=== PATIENT | male | born 1965 | race Caucasian/White ===

== ENCOUNTER 2016-11-24 17:49 | Emergency (ER) | payer BC, OTHER ==
[2016-11-24 18:02] VITALS: BP 108/72; PULSE 92; TEMP 98.4; BMI 32.4
--- NOTE | 2016-11-24 19:43 | PDOC ---
History of Present Illness - General Chief Complaint: Note to return to work Stated Complaint: LOWER BACK PAIN Time Seen by Provider: 11/24/16 19:19 History Source: Patient Exam Limitations: No Limitations - History of Present Illness Initial Comments: 11/24/16 19:36 CHIEF COMPLAINT: Low back pain HISTORY OF PRESENT ILLNESS: This is an otherwise healthy 51 year old male who presented to urgent care one week ago for low back pain following a fall at work. He reports being diagnosed with "muscle spasm." He continues to have pain with heavy lifting and would like to remain on light duty at work. He denies any weakness or numbness of the legs, and change in bladder or bowel function, or any other symptoms. PCP: None REVIEW OF SYSTEMS: GENERAL/CONSTITUTIONAL: No fever or chills. No weakness. No weight change. RESPIRATORY: No cough, wheezing, or shortness of breath. GASTROINTESTINAL: No nausea, vomiting, diarrhea or constipation. GENITOURINARY: No dysuria, frequency, or change in urination. MUSCULOSKELETAL: See HPI. SKIN: No rash or easy bruising. NEUROLOGIC: No headache, vertigo, loss of consciousness, or loss of sensation. HEMATOLOGIC/LYMPHATIC: No anemia, easy bleeding, or history of blood clots. ALLERGIC/IMMUNOLOGIC: No hives or skin allergy. No latex allergy. PHYSICAL EXAM: GENERAL: The patient is awake, alert, and fully oriented, in no acute distress. ENT: Pupils equal, round and reactive to light, extraocular movements intact, sclera anicteric, conjunctiva clear. Neck supple. LUNGS: Clear to auscultation bilaterally. Normal excursion. No respiratory distress or use of accessory muscles. CV: RRR, S1/S2, no MRG. Cap refill < 2 sec. ABDOMEN: Soft, non-distended, non-tender. EXTREMITIES: Normal range of motion, no edema. NEUROLOGICAL: Normal speech, normal gait. CN II-XII grossly intact. No midline vertebral tenderness. PSYCH: Normal mood, normal affect. SKIN: Warm, dry, normal turgor, no rashes or lesions noted. Past History - Past Medical History Allergies/Adverse Reactions: Allergies Allergy/AdvReac Type Severity Reaction Status Date / Time No Known Allergies Allergy Verified 11/24/16 17:59 Home Medications: Ambulatory Orders Unobtainable [Unobtainable] 11/24/16 Other medical history: denies - Immunization History Immunization Up to Date: Yes - Psycho/Social/Smoking Cessation Hx Suicidal Ideation: No Smoking History: Never smoked Hx Alcohol Use: Yes Drug/Substance Use Hx: No *Physical Exam - Vital Signs Last Vital Signs Temp Pulse Resp BP Pulse Ox 98.4 F 92 H 18 108/72 97 11/24/16 18:00 11/24/16 18:00 11/24/16 18:00 11/24/16 18:00 11/24/16 18:00 Medical Decision Making - Medical Decision Making 11/24/16 19:50 A/P: 51 year old male with low back pain. Normal neurologic exam. -Patient does not recall what medications he is taking for pain -Referred to PCP and orthopedics for further evaluation and treatment -Return precautions reviewed *DC/Admit/Observation/Transfer Diagnosis at time of Disposition: Low back pain Qualifiers: Chronicity: acute Back pain laterality: midline Sciatica presence: without sciatica Qualified Code(s): M54.5 - Low back pain - Discharge Dispostion Disposition: HOME Condition at time of disposition: Stable Admit: No - Referrals Referrals: Freddie Dupree MD [Staff Physician] - Call tomorrow (account management specialist) Riky Vicente MD [Staff Physician] - Call tomorrow (Primary care) - Patient Instructions Printed Discharge Instructions: DI for Low Back Pain Additional Instructions: -Continue your prescribed medications -Follow up with primary care and/or the senior regulatory affairs specialist (referral enclosed) for further evaluation and treatment, likely including physical therapy -Return here for weakness/numbness in you legs or change in bladder/bowel function as these could be signs of a serious condition - Post Discharge Activity Work/School Note: Back to Work
== END 2016-11-24 19:55 | disposition home or self-care (01) ==
LOC: JERFT 17:49
DX: M54.5 Low back pain (principal)
CPT/HCPCS: 99281-25

== ENCOUNTER 2017-09-17 23:02 | Emergency (ER) | payer BC, OTHER ==
[2017-09-17 23:06] VITALS: TEMP 98.5; BMI 32.3
--- NOTE | 2017-09-18 00:47 | PDOC ---
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 Patient states on 09/15 he received cortisone injections lateral to his spine to help control pain from lumbar radiculopathy. On 09/16, the patient ate at a food truck in the day following eating at the food truck began to experience the diarrhea. Patient reports his diarrhea was initially brown but is slowly progressed to a watery. Patient states she's been able to tolerate soups and coconut water without any difficulty. Denies any nausea or vomiting. Patient states he has not checked his temperature but reports subjective fevers and chills. Patient is afebrile here. Patient denies any saddle anesthesia, incontinence of bladder or bowel, numbness or tingling to his legs, worsening back pain. Past History - Past Medical History Allergies/Adverse Reactions: Allergies Allergy/AdvReac Type Severity Reaction Status Date / Time No Known Allergies Allergy Verified 09/17/17 23:06 Home Medications: Ambulatory Orders traMADol HCL [Ultram] 50 mg PO Q6H PRN 09/17/17 Levofloxacin [Levaquin] 500 mg PO DAILY #5 tablet 09/18/17 metroNIDAZOLE [Flagyl -] 500 mg PO BID #20 tablet 09/18/17 COPD: No - Immunization History Immunization Up to Date: Yes - Suicide/Smoking/Psychosocial Hx Smoking History: Never smoked Hx Alcohol Use: Yes Drug/Substance Use Hx: No Review of Systems - Review of Systems Able to Perform ROS?: Yes Is the patient limited Tajik proficient: No Constitutional: Yes: See HPI HEENTM: No: Symptoms Reported Respiratory: No: Symptoms reported Cardiac (ROS): No: Symptoms Reported ABD/GI: Yes: See HPI : No: Symptoms Reported Musculoskeletal: No: Symptoms Reported Integumentary: No: Symptoms Reported Neurological: No: Symptoms reported Endocrine: No: Symptoms Reported Hematologic/Lymphatic: No: Symptoms Reported *Physical Exam - Vital Signs Last Vital Signs Temp Pulse Resp BP Pulse Ox 98.5 F 116 H 20 150/70 98 09/17/17 23:03 09/17/17 23:03 09/17/17 23:03 09/17/17 23:03 09/17/17 23:03 - Physical Exam General Appearance: Yes: Appropriately Dressed. No: Apparent Distress HEENT: positive: Normal ENT Inspection Neck: positive: Trachea midline, Supple Respiratory/Chest: positive: Lungs Clear, Normal Breath Sounds. negative: Respiratory Distress, Accessory Muscle Use Cardiovascular: positive: Regular Rhythm, Regular Rate. negative: Murmur Gastrointestinal/Abdominal: positive: Tender (diffusely), Soft, Increased Bowel Sounds Musculoskeletal: positive: Normal Inspection. negative: CVA Tenderness Extremity: positive: Normal Inspection, Normal Range of Motion Integumentary: positive: Normal Color, Dry, Warm Neurologic: positive: Alert, Normal Response, Motor Strength 5/5 ED Treatment Course - LABORATORY CBC & Chemistry Diagram: 09/18/17 01:00 09/18/17 01:00 Medical Decision Making - Medical Decision Making 09/18/17 00:57 A/P: 52-year-old male with history of lower back pain now with diarrhea and chills for 1 day Hyperactive bowel sounds Abdomen diffusely tender Injection sites of been covered since procedure. No erythema or warmth noted to four injection sites noted laterally at the between L3-L4 and L4-L5. No saddle anesthesia No incontinence of bladder or bowel Full sensation noted to lower extremities Differential diagnosis includes gastroenteritis, bowel obstruction, peritonitis , reaction to steroid injections. Less likely spinal abscess or epidural abscess given normal neurologic exam. Less likely spinal hematoma given the absence of ecchymosis or bleeding at injection sites. Labs, urine, CAT scan, IVF 09/18/17 05:59 Laboratory testing reveals a white count of 8.9. Left shift is noted. CMP is unremarkable with lipase of 110. Urinalysis reveals trace ketones, 1+ blood, 1+ leuk esterase with 45 white cells. 09/18/17 06:30 CT of abdomen and pelvis preliminary read by imaging investment professional: There is no bowel obstruction, free air or free fluid. Negative for diverticulitis or colitis. Normal appendix visualized. There is mild mesenteric panniculitis. Normal kidneys and urinary tract. Urinary bladder merritt are somewhat thickened. This may be due to partial distention or due to mildly enlarged prostate. Never less check for UTI. Normal liver normal spleen normal pancreas Normal gallbladder Normal adrenal glands Osseous structures are intact CT results discussed with Dr. dobbins. Plan to discharge patient home with GI and follow-up. I will collect ESR and CRP for baseline studies the patient to continue evaluation as an outpatient. I'll treat the urinary tract infection and the mesenteric panniculitis with Levaquin and Flagyl. CAT scan results's office with patient verbalizes understanding of importance to have GI and follow-up. *DC/Admit/Observation/Transfer Diagnosis at time of Disposition: UTI (urinary tract infection) with pyuria, Mesenteric panniculitis - Discharge Dispostion Disposition: HOME Condition at time of disposition: Fair Decision to Admit order: No - Prescriptions Prescriptions: Levofloxacin [Levaquin] 500 mg PO DAILY #5 tablet metroNIDAZOLE [Flagyl -] 500 mg PO BID #20 tablet - Referrals Referrals: Jose A Gavin MD [Staff Physician] - Noe Swift MD., [Staff Physician] - - Patient Instructions Additional Instructions: Take antibiotics as prescribed. You have been given a referral to see Dr. Gavin who is a street department dispatcher and for Dr. Swift who is a urologist. It is important that she follow up with these doctors for evaluation of urinary tract infection and mesenteric panniculitis. Return to emergency department for any worsening abdominal pain, diarrhea, fevers, chills or any other concerns. - Post Discharge Activity
[2017-09-18] MEDS ORDERED: SODIUM CHLORIDE 1,000 ML IV STA (00:55)
[2017-09-18 01:36] LABS: BASO % 0.3 % (0-2.0); EOS % 1.1 % (0-4.5); HEMATOCRIT 48.4 % (35.4-49); LYMPH % 4.9 % (8-40); MCH 26.7 pg (25.7-33.7); MCHC 33.1 g/dl (32.0-35.9); MEAN CELL VOLUME 80.6 fl (80-96); MEAN PLT VOLUME 8.2 fl (7.5-11.1); MONO % 9.2 % (3.8-10.2); NEUT % 84.5 % (42.8-82.8); PLATELET COUNT 188 K/MM3 (134-434); RDW 13.5 % (11.9-15.9); WHITE BLOOD COUNT 8.9 K/mm3 (4.0-10.0)
--- NOTE | 2017-09-18 01:52 | PDOC ---
*Physical Exam - Vital Signs Last Vital Signs Temp Pulse Resp BP Pulse Ox 98.5 F 116 H 20 150/70 98 09/17/17 23:03 09/17/17 23:03 09/17/17 23:03 09/17/17 23:03 09/17/17 23:03 ED Treatment Course - LABORATORY CBC & Chemistry Diagram: 09/18/17 01:00 09/18/17 01:00 - ADDITIONAL ORDERS Additional order review: 09/18/17 01:00 RBC 6.00 H MCV 80.6 MCHC 33.1 RDW 13.5 MPV 8.2 Neutrophils % 84.5 H Lymphocytes % 4.9 L Monocytes % 9.2 Eosinophils % 1.1 Basophils % 0.3 Medical Decision Making - Medical Decision Making 09/18/17 01:52 agree with care from GUIDO Rodriguez
[2017-09-18 02:00] LABS: ALBUMIN 3.8 g/dl (3.4-5.0); ANION GAP 10 (8-16); BLOOD UREA NITROGEN 13 mg/dL (7-18); CALCIUM 8.6 mg/dL (8.5-10.1); CHLORIDE 105 mmol/L (98-107); CO2 24 mmol/L (21-32); GLUCOSE,RANDOM 97 mg/dL (74-106); LIPASE 110 U/L (73-393); POTASSIUM 3.9 mmol/L (3.5-5.1); SGOT/AST 34 U/L (15-37); SGPT/ALT 57 U/L (12-78); SODIUM 139 mmol/L (136-145)
[2017-09-18 02:03] LABS: ALK PHOS 62 U/L (45-117); BILIRUBIN,TOTAL 1.1 mg/dL (0.2-1.0)
[2017-09-18 02:50] LABS: URINE APPEARANCE CLEAR; URINE BILIRUBIN NEGATIVE (<2.0 mg/dL); URINE COLOR YELLOW; URINE GLUCOSE (UA) NEGATIVE (NEGATIVE); URINE KETONE TRACE (NEGATIVE); URINE NITRITE NEGATIVE (NEGATIVE); URINE PROTEIN NEGATIVE (NEGATIVE); URINE UROBILINOGEN NEGATIVE mg/dL (0.2-1.0)
[2017-09-18 02:57] LABS: URINE LEUK ESTERASE 1+ (NEGATIVE)
[2017-09-18 03:01] LABS: EPI CELLS RARE /HPF (FEW); URINE MUCUS RARE
[2017-09-18 07:01] VITALS: BP 134/78; PULSE 89
== END 2017-09-18 06:50 | disposition home or self-care (01) ==
LOC: JER 23:02
PROC: 3E0337Z Introduction of Electrolytic and Water Balance Substance into Peripheral Vein, Percutaneous Approach (ICD-10-PCS; principal; 2017-09-17)
DX: K65.4 Sclerosing mesenteritis (principal); N39.0 Urinary tract infection, site not specified
CPT/HCPCS: 36415; 74177-TC; 80053; 81003; 81015; 83605; 83690; 85025; 85651; 86140; 87086; 99283-25; J7030

== ENCOUNTER 2024-06-24 12:35 | Emergency (ER) | payer BC, OTHER ==
[2024-06-24 12:46] VITALS: BP 128/72; PULSE 80; RESP 18; TEMP 98; BMI 32.8
[2024-06-24] MEDS ORDERED: LIDOCAINE 4% PATCH TP ONE (13:14)
[2024-06-24] MEDS ORDERED: IBUPROFEN 400 MG TABLET (FP) PO ONE (13:14)
[2024-06-24] MEDS ORDERED: CycloBENZAprine HCL 10 MG TABLET (FP) ONE (13:14)
[2024-06-24] MEDS ORDERED: ACETAMINOPHEN 500 MG TABLET (FP) ONE (13:15)
[2024-06-24] MEDS: IBUPROFEN 400 MG TABLET (FP) PO ONE (13:20)
[2024-06-24] MEDS: LIDOCAINE 5% TOPICAL PATCH TP ONE (13:20)
[2024-06-24] MEDS: CycloBENZAprine HCL 10 MG TABLET (FP) PO ONE (13:20)
[2024-06-24] MEDS: ACETAMINOPHEN 500 MG TABLET (FP) PO ONE (13:20)
[2024-06-24] MEDS ORDERED: LIDOCAINE PATCH REMOVAL MC ONE (22:00)
== END 2024-06-24 14:42 | disposition home or self-care (01) ==
LOC: JERFT 12:35
DX: M54.50 Low back pain, unspecified (principal)
CPT/HCPCS: 72100-TC-FY; 99283-25